=== PATIENT | female | born 1980 | race Caucasian/White ===

== ENCOUNTER 2017-07-25 19:25 | Inpatient (IN) | payer MEDICAID, SELFPAY ==
[2017-07-25] MEDS: Lactated Ringers 1,000 ML 50 ML IV ×2 (20:15→21:18)
[2017-07-25 20:18] VITALS: BMI 29.1
[2017-07-25 20:34] LABS: Hematocrit 38.1 % (37-47); Hemoglobin 12.9 g/dl (12.0-15.0); Mean Corp Hgb Conc 33.9 g/gl (32-36); Mean Corpuscular Hgb 28.9 pg (27.0-32.0); Mean Corpuscular Volume 85.4 fL (81-99); Mean Platelet Vol. 10.1 fl (6.2-12.0); Platelet Count 196 K/mm3 (150-450); RBC Distribution Width CV 13.8 % (11.6-14.6); RBC Distribution Width SD 42.7 fl (35.1-43.9); Red Blood Count 4.46 M/mm3 (4.2-5.4); White Blood Count 7.5 K/mm3 (4.4-11.0)
[2017-07-25 20:37] LABS: Scan Indicated on CBC? Y/N NO
--- NOTE | 2017-07-25 21:26 | PCM.HP.OB ---
History Date of Admission: 07/25/17 Final ASIM: 07/31/17 Final ASIM Source: US <20 weeks Gestational age: 39 Weeks and 1 Days History of this : 36-year-old at 39-1/7 weeks gestation EDC of July 31, 2017 presents complaining of contractions. Is admitted in labor. Her was complicated to date by advanced maternal age. Pertinent Past Medical History: Past medical history significant for anxiety, acne, clinical hyperthyroidism. Obstetrical history: She has had 4 previous vaginal deliveries at 36 weeks 4 days the remainder at term. Past surgical history: [place] teeth extraction and again biopsies Allergies No Known Allergies Allergy (Verified 07/25/17 20:10) Current Medications Acetaminophen (Tylenol) 325 - 650 mg PO Q4H PRN PRN PRN Reason: PAIN OR FEVER >100.4F Al Hydroxide/Mg Hydroxide (Mylanta Ii) 15 - 30 ml PO Q4H PRN PRN PRN Reason: INDIGESTION Citric Acid/Sodium Citrate (Bicitra) 30 ml PO UD PRN Lactated Ringer's () 1,000 mls @ 50 mls/hr IV .Q20H [facility] Last Admin: 07/25/17 21:18 Dose: 50 mls/hr Nalbuphine HCl (Nubain) 5 - 10 mg IV Q3H PRN PRN PRN Reason: PAIN (4-10/10) Ondansetron HCl (Zofran) 4 mg IV Q8H PRN PRN PRN Reason: NAUSEA Promethazine HCl (Phenergan (Ll)) 6.25 - 12.5 mg IV Q4H PRN PRN; Protocol PRN Reason: IF NAUSEA PERSISTS Sodium Chloride () 5 - 15 ml IV UD [facility] Last Admin: 07/25/17 20:44 Dose: Not Given Smoking Status: Never smoker Alcohol: None Drug Use: none Number of Fetus(es): 1 Review of Systems Constitutional: Denies: Chills, Fever Cardiovascular: Reports: Edema - mild. Denies: Chest Pain Respiratory: Denies: Cough Physical Exam General: Alert, Cooperative, No apparent distress Cardiovascular: Regular rate Lungs: Normal air movement Abdomen: Soft, Non Tender, Non-Distended, Gravid, Appropriate for Gestational Age Extremities:: Other - edema- trace Estimated gestational size: Appropriate for gestational size Presentation: Cephalic Assessment/Plan 36-year-old 5 para 4 female at 39-1/7 weeks gestation in active labor. 1. Admit in labor, estimated weight is less than 4500 g and pelvis is clinically adequate to expect vaginal delivery. May use epidural or nitrous oxide as needed for pain control. 2. Group B strep is negative
--- NOTE | 2017-07-25 21:31 | HP.PCM_ITS ---
History Date of Admission: 07/25/17 Final ASIM: 07/31/17 Final ASIM Source: US <20 weeks Gestational age: 39 Weeks and 1 Days History of this : 36-year-old at 39-1/7 weeks gestation EDC of July 31, 2017 presents complaining of contractions. Is admitted in labor. Her was complicated to date by advanced maternal age. Pertinent Past Medical History: Past medical history significant for anxiety, acne, clinical hyperthyroidism. Obstetrical history: She has had 4 previous vaginal deliveries at 36 weeks 4 days the remainder at term. Past surgical history: [place] teeth extraction and again biopsies Allergies No Known Allergies Allergy (Verified 07/25/17 20:10) Current Medications Acetaminophen (Tylenol) 325 - 650 mg PO Q4H PRN PRN PRN Reason: PAIN OR FEVER >100.4F Al Hydroxide/Mg Hydroxide (Mylanta Ii) 15 - 30 ml PO Q4H PRN PRN PRN Reason: INDIGESTION Citric Acid/Sodium Citrate (Bicitra) 30 ml PO UD PRN Lactated Ringer's () 1,000 mls @ 50 mls/hr IV .Q20H [facility] Last Admin: 07/25/17 21:18 Dose: 50 mls/hr Nalbuphine HCl (Nubain) 5 - 10 mg IV Q3H PRN PRN PRN Reason: PAIN (4-10/10) Ondansetron HCl (Zofran) 4 mg IV Q8H PRN PRN PRN Reason: NAUSEA Promethazine HCl (Phenergan (Ll)) 6.25 - 12.5 mg IV Q4H PRN PRN; Protocol PRN Reason: IF NAUSEA PERSISTS Sodium Chloride () 5 - 15 ml IV UD [facility] Last Admin: 07/25/17 20:44 Dose: Not Given Smoking Status: Never smoker Alcohol: None Drug Use: none Number of Fetus(es): 1 Review of Systems Constitutional: Denies: Chills, Fever Cardiovascular: Reports: Edema - mild. Denies: Chest Pain Respiratory: Denies: Cough Physical Exam General: Alert, Cooperative, No apparent distress Cardiovascular: Regular rate Lungs: Normal air movement Abdomen: Soft, Non Tender, Non-Distended, Gravid, Appropriate for Gestational Age Extremities:: Other - edema- trace Estimated gestational size: Appropriate for gestational size Presentation: Cephalic Assessment/Plan 36-year-old 5 para 4 female at 39-1/7 weeks gestation in active labor. 1. Admit in labor, estimated weight is less than 4500 g and pelvis is clinically adequate to expect vaginal delivery. May use epidural or nitrous oxide as needed for pain control. 2. Group B strep is negative
[2017-07-25] MEDS: Mag Hydrox/Al Hydrox/Simeth 30 ML UDC PO (22:34)
[2017-07-25] MEDS: Oxytocin 30 units/NS 500 ml 30 UNITS/500 ML IV.SOLN 334 UNITS IV (23:01)
--- NOTE | 2017-07-25 23:17 | PCM.OB.VAG ---
Vaginal Delivery Maternal Presentation: Active Labor Amniotic Membrane Rupture Type: Artificial Amniotic Fluid Description: Clear Final ASIM: 07/31/17 Final ASIM Source: US <20 weeks Gestational age: 39 Weeks and 1 Days Date of Procedure: 07/25/17 Pre-Operative Diagnosis: Labor Post-Operative Diagnosis: Same Surgery/ Procedure Performed: Spontaneous Vaginal Delivery Type of Anesthesia: Epidural Description of Procedure: A vigorous female was delivered ALLIE over a second-degree perineal laceration. The remainder the infant was delivered with maternal pushing and gentle traction only in less than 15 seconds. The Pitocin infusion was initiated for active management of the third stage. The cord was clamped and cut after 1 minute. The infant was attended to by the waiting nursing staff. The placenta was delivered spontaneously and intact. The cervix and vagina were intact. The second-degree perineal laceration was repaired with 3-0 Vicryl suture in a running standard fashion. Sponge and needle counts were correct. A vaginal sweep was completed by me. Presentation: MERVAT Placental Delivery Description: Spontaneous Placenta Disposition: [facility] Cord Vessel Description: 3 Vessels Cord Entanglement: None Drain: - - None Estimated Blood Loss: 300 Infant A gender: Female (1 minute): 9 (5 minute): 10 Episiotomy Description: None Laceration: 2nd degree Medications given after delivery: IV Pitocin Complications: None
[2017-07-25] MEDS: Oxytocin 30 units/NS 500 ml 30 UNITS/500 ML IV.SOLN 167 UNITS IV (23:31)
[2017-07-26] MEDS: Methylergonovine 0.2 MG/ML Ampul IM (00:08)
[2017-07-26] MEDS: 0.9% Saline Lock 10 ML Syringe IV (00:40)
--- NOTE | 2017-07-26 01:23 | NURSING ---
epidural catheter removed, blue tip intact
[2017-07-26] MEDS: Naproxen 250 MG Tablet PO ×3 (03:34→20:24)
[2017-07-26 08:05] VITALS: BP 121/80; PULSE 82; RESP 16; TEMP 36.4
--- NOTE | 2017-07-26 08:59 | PCM.PN.OB ---
Subjective: pain well controlled, average lochia - Physical Exam General: Alert, Cooperative, No apparent distress Vital Signs Temp Pulse Resp BP 97.6 F L 82 16 121/80 H 07/26/17 08:05 07/26/17 08:05 07/26/17 08:05 07/26/17 08:05 Weight: 74.7 kg Body Mass Index (BMI) 29.1 Intake and Output for Last 24 Hours 07/24/17 07/25/17 07/26/17 23:59 23:59 23:59 Intake Total 1315 / 1315 600 / 600 Output Total 500 / 500 1800 / 1800 Balance 815 / 815 -1200 / -1200 Laboratory Tests Past 24 Hrs 07/25/17 07/25/17 20:15 20:15 WBC 7.5 RBC 4.46 Hgb 12.9 Hct 38.1 MCV 85.4 MCH 28.9 MCHC 33.9 RDW 13.8 RDW Differential 42.7 Plt Count 196 MPV 10.1 Blood Type O POSITIVE Antibody Screen NEGATIVE Assessment/Plan PPD#1 Doing well infant and doing well
[2017-07-26 12:00] VITALS: BP 113/72; PULSE 89; RESP 16; TEMP 36.6
[2017-07-26 16:11] VITALS: BP 111/64; PULSE 83; RESP 16; TEMP 36.4
[2017-07-26 19:50] VITALS: BP 116/52; PULSE 92; RESP 16; TEMP 36.4; O2SAT 98
[2017-07-27] MEDS: Acetaminophen 500 MG Tablet 1000 MG PO (02:09)
[2017-07-27 02:11] VITALS: BP 124/77; PULSE 82; RESP 16; TEMP 36.2; O2SAT 98
[2017-07-27] MEDS: Naproxen 250 MG Tablet PO (05:49)
[2017-07-27 07:38] VITALS: BP 110/57; PULSE 81; RESP 16; TEMP 36.4; O2SAT 98
--- NOTE | 2017-07-27 08:24 | DCINST_ITS ---
Discharge Diet: No Restrictions Discharge Activity: Return to Normal Activity, May not drive while taking narcotic pain medications., May Shower May resume sexual activity in: 4-6 weeks Additional Activity Instructions:: Nothing in the vagina for 4-6 weeks. You may return to work/school in 6 weeks. Call your doctor if your incision/area has: Continuous Slow Oozing, Sudden Increased Bleeding, Increased Pain/ Swelling, Increased Redness, Foul Smelling Discharge Additional Instructions: If you experience any of the following, contact your healthcare provider. * Bleeding that soaks a pad every hour for 2 hours * Fever 100.4 or higher * Unrelieved incision or abdominal pain * Swelling, redness, discharge or bleeding from your incision or episiotomy site * Your incision begins to separate * Problems urinating (including inability to urinate or burning while urinating) . * Visual changes * Severe headache * Flu-like symptoms * Pain or redness in one of both of your breasts * Pain, warmth, tenderness or swelling in your legs, especially the calf area * Frequent nausea and vomiting * Symptoms of depression or anxiety If you experience any of the following, call 911 or go to the nearest Emergency Room. * Chest pain * Problems breathing * Seizure activity * Partial or complete paralysis of a body part, slurred speech, weakness or drooping of the face, or a sudden inability to walk or hold your balance Allergies/Adverse Reactions: Allergies No Known Allergies Allergy (Verified 07/25/17 20:10) Medications to take at Discharge Bacillus Coagulans [Probiotic] 1 each PO DAILY 07/25/17 Vit Calc,Iron,Folic [ Vitamins] 1 each PO DAILY 07/25/17 Please Follow Up With: Charlene Jones MD - [phone] When: Call to make an appointment with your doctor in 6 weeks. If you had elevated Blood Pressure or 4th degree laceration you will need to be seen in 2 weeks. Primary Care Physician: Juan Manuel Ariza III, MD [Primary Care Provider] -
--- NOTE | 2017-07-27 08:24 | PCM.DCVAG ---
Discharge Diet: No Restrictions Discharge Activity: Return to Normal Activity, May not drive while taking narcotic pain medications., May Shower May resume sexual activity in: 4-6 weeks Additional Activity Instructions:: Nothing in the vagina for 4-6 weeks. You may return to work/school in 6 weeks. Call your doctor if your incision/area has: Continuous Slow Oozing, Sudden Increased Bleeding, Increased Pain/ Swelling, Increased Redness, Foul Smelling Discharge Additional Instructions: If you experience any of the following, contact your healthcare provider. Bleeding that soaks a pad every hour for 2 hours Fever 100.4 or higher Unrelieved incision or abdominal pain Swelling, redness, discharge or bleeding from your incision or episiotomy site Your incision begins to separate Problems urinating (including inability to urinate or burning while urinating). Visual changes Severe headache Flu-like symptoms Pain or redness in one of both of your breasts Pain, warmth, tenderness or swelling in your legs, especially the calf area Frequent nausea and vomiting Symptoms of depression or anxiety If you experience any of the following, call 911 or go to the nearest Emergency Room. Chest pain Problems breathing Seizure activity Partial or complete paralysis of a body part, slurred speech, weakness or drooping of the face, or a sudden inability to walk or hold your balance Allergies/Adverse Reactions: Allergies No Known Allergies Allergy (Verified 07/25/17 20:10) Medications to take at Discharge Bacillus Coagulans [Probiotic] 1 each PO DAILY 07/25/17 Vit Calc,Iron,Folic [ Vitamins] 1 each PO DAILY 07/25/17 Please Follow Up With: Charlene Jones MD - [phone] When: Call to make an appointment with your doctor in 6 weeks. If you had elevated Blood Pressure or 4th degree laceration you will need to be seen in 2 weeks. Primary Care Physician: Juan Manuel Ariza III, MD [Primary Care Provider] -
--- NOTE | 2017-07-27 08:25 | PCM.PN.OB ---
Subjective: pain well controlled, average lochia - Physical Exam General: Alert, Cooperative, No apparent distress Vital Signs Temp Pulse Resp BP Pulse Ox 97.6 F L 81 16 110/57 L 98 07/27/17 07:38 07/27/17 07:38 07/27/17 07:38 07/27/17 07:38 07/27/17 07:38 Oxygen Delivery Method Room Air Weight: 74.7 kg Body Mass Index (BMI) 29.1 Intake and Output for Last 24 Hours 07/25/17 07/26/17 07/27/17 23:59 23:59 23:59 Intake Total 1315 / 1315 600 / 600 Output Total 500 / 500 1800 / 1800 Balance 815 / 815 -1200 / -1200 Assessment/Plan PPD#2 doing well ready for d/c
== END 2017-07-27 11:30 | disposition home or self-care (01) | DRG 373 ==
PROVIDERS: Admitting Provider Obstetrics & Gynecology; Family Provider Family Medicine; PCP Family Medicine; Visit Provider Obstetrics & Gynecology
DX: O70.1 Second degree perineal laceration during delivery (principal); Z3A.39 39 weeks gestation of pregnancy; Z37.0 Single live birth
CPT/HCPCS: 59025; 59050; 85027; 86850; 86900; 99218; J7120; A4216; G0378

== ENCOUNTER 2020-05-13 21:41 | Emergency (ER) | payer MEDICAID, SELFPAY ==
[2020-05-13 21:42] VITALS: BP 152/111; PULSE 140; RESP 18; TEMP 36.2; O2SAT 100; BMI 25.7
--- NOTE | 2020-05-13 21:51 | EKG12_ITS ---
Test Reason : PALPS Blood Pressure : / mmHG Vent. Rate : 126 BPM Atrial Rate : 126 BPM P-R Int : 164 ms QRS Dur : 088 ms QT Int : 310 ms P-R-T Axes : 077 005 058 degrees QTc Int : 448 [address] tachy[address] Nonspecific ST abnormality Abnormal ECG Confirmed by ZACHARY PHAN, VIRGINIE ([id number]), food expeditor EBONY OVIEDO ([id number]) on 05/18/2020 9:48:11 A M Referred By: RACHEL Confirmed By:CITLALI SHARMA MD
[2020-05-13 22:00] VITALS: BP 136/84; PULSE 135; RESP 16; O2SAT 100
--- NOTE | 2020-05-13 22:06 | ED.VISSUMM ---
- ER Visit Summary Date of Service: 05/13/20 Chief Complaint: Palpitations History of Present Illness: The patient is a 39 F past medical history of panic attacks. Says she was eating dinner tonight about 620 she just felt her arms heavy and felt she might pass out. Denies any chest pain. About 2 to 2.5 hours later she developed accelerated heart rate. States she is never had this happen before denies any shortness of breath. No recent travel, surgery or immobilization. No hospitalization. No history of DVT or PE. Her last menstrual period started about a week ago and ended 2 days ago. She has heavy menstrual periods normally but said she seen the bleed more this time. She denies any recent nausea, vomiting or diarrhea. She denies any melena. She denies any fever or chills. No cough. No recent chest pain. Notes no family history. She denies any calf pain or swelling. Physical Examination: Young female no acute distress. Vital signs are stable and afebrile. Heart rate is 140. Pulse ox 100% on room air no signs hypoxia. HEENT exam unremarkable. Neck nontender no lymphadenopathy. No JVD. Lungs clear to auscultation bilaterally. Heart tachycardic rate about 140 no murmur. Chest wall nontender. Abdomen soft nontender. Patient is moving all 4 extremities. Neurovascular intact. Equal symmetrical radial pulses. Calves are nontender without edema or cords. Neurologically she is awake alert with no focal motor deficits. Back is nontender. Test Results: EKG shows a sinus tachycardia rate of 126 with no acute signs of [place]. Chest x-ray normal. Normal cardiac silhouette. Normal mediastinum. Normal lung macario. Portable 1 view interpreted by myself. Radiologist agrees. CBC normal white count of 7. Hemoglobin 14. Chemistries unremarkable other than a low potassium of 2.9. Normal creatinine and gap. Troponin normal. D-dimer was normal also. Repeat exam patient is doing well. Pulse ox is 100% on room air. I did walk her up and down the hallway she had no shortness of breath. No trouble walking. Heart rate was around 120 but without complaints. She never became hypoxic. Emergency Department Course and Treatment: Patient with near syncope and accelerated heart rate but now is feeling better. Labs are unremarkable. Other than a low potassium of 2.9. She will be given p.o. K-Dur. Placed on potassium for the next week. Treatment Plan: Return if feeling worse. Follow-up with your primary care physician. K. Dur 40 mg daily for 1 week. Disposition: Discharge Impression: Near syncope uncertain etiology with tachycardia Hypokalemia This note was generated with [employer] dictation software. It may contain incorrect words, spelling, and punctuation that were not noted in review of the chart prior to signing ED Disposition - Plan for ED Patient: Referrals: Juan Manuel Ariza III, MD [Primary Care Provider] -
[2020-05-13 22:14] LABS: Absolute Lymphocyte Count 1.89 X10^3/uL (0.83-4.51); Absolute Neutrophil Count 4.7 X10^3/uL (2.0-7.7); Basophil# 0.03 X10^3/uL; Basophil% 0.4 % (0-1); Eosinophil# 0.06 X10^3/uL; Eosinophils% 0.8 % (0-5); Hematocrit 42.4 % (37-47); Hemoglobin 14.6 g/dL (12.0-15.0); Lymphocyte # 1.89 X10^3/ul (4.0); Mean Corp Hgb Conc 34.4 g/dL (32-36); Mean Corpuscular Hgb 29.4 pg (27.0-32.0); Mean Corpuscular Volume 85.3 fL (81-99); Mean Platelet Vol. 9.7 fl (6.2-12.0); Monocyte# 0.56 X10^3/uL; Monocyte% 7.7 % (0-10); NRBC Flagged by Analyzer 0 % (0-5); Neutrophil # 4.71 X10^3/uL (2.7-7.7); Neutrophil % 64.8 % (47-70); Platelet Count 398 K/mm3 (150-450); RBC Distribution Width CV 12.1 % (11.6-14.6); RBC Distribution Width SD 37.2 fl (35.1-43.9); Red Blood Count 4.97 M/mm3 (4.2-5.4); White Blood Count 7.3 K/mm3 (4.4-11.0)
--- NOTE | 2020-05-13 22:17 | RAD_ITS ---
STUDY: X-RAY CHEST REASON FOR EXAM: Female, 39 years old. Palpitations. TECHNIQUE: AP COMPARISON: None. FINDINGS: No apparent pneumothorax, pneumonia, pleural effusion, or edema. Cardiac silhouette, pepito and mediastinal contours are within normal limits. No acute osseous abnormality. No evidence of free air under the diaphragm. RAD/Chest 1 View (Portable) IMPRESSION: Negative chest radiograph. Electronically Signed: Lon Meyer, at 22:39 EST Tel , Service support ,
[2020-05-13 22:27] LABS: Anion Gap 8 (5-15); BUN 13 mg/dL (7-18); BUN/Creat Ratio 16.9 RATIO (10-20); Calcium,Total 9.2 mg/dL (8.5-10.1); Chloride 104 mmol/L (98-107); Creatinine, Serum 0.77 mg/dL (0.55-1.02); EST Glomerular Filtration Rate 89 mL/min (>60); Est Glom Filt Rate - Afr Amer 107 mL/min (>60); Estimated Creatinine Clearance 85.54 ml/min; Glucose 148 mg/dL (74-106); Potassium 2.9 mmol/L (3.5-5.1); Sodium Level 138 mmol/L (136-145)
[2020-05-13 22:58] LABS: D-Dimer Quantitative (DVT/PE) <= 0.27 FEU/ug/m (0.27-0.49)
--- NOTE | 2020-05-13 23:01 | ED.DEP ---
ED Disposition - Plan for ED Patient: Disposition: Home or Assisted Living Instructions: ED Hypokalemia, ED Near-Fainting, Uncertain Cause Prescriptions: Potassium Chloride [K-Dur] 20 meq PO DAILY 7 Days tab Prescription Printed Referrals: Juan Manuel Ariza III, MD [Primary Care Provider] - 3-5 Days if not improving Additional Instructions: Your lab work and x-ray were unremarkable. Your potassium is slightly low at 2.9. Use the potassium prescription over the next week. Follow-up with your doctor if not improving or return to the emergency department if feeling worse.
[2020-05-13 23:35] VITALS: BP 117/78; PULSE 117; RESP 20; O2SAT 98
== END 2020-05-13 23:36 | disposition home or self-care (01) ==
PROVIDERS: Emergency Provider Emergency Medicine; PCP Family Medicine
DX: R55 Syncope and collapse (principal); E87.6 Hypokalemia; R00.0 Tachycardia, unspecified; F41.0 Panic disorder [episodic paroxysmal anxiety]
CPT/HCPCS: 71045; 80048; 84484; 85025; 85379; 93005; 99285; A4216

== ENCOUNTER 2021-11-13 13:38 | Emergency (ER) | payer MEDICAID, SELFPAY ==
[2021-11-13 13:39] VITALS: BP 145/84; PULSE 116; RESP 16; TEMP 36.9; O2SAT 100; BMI 25.7
--- NOTE | 2021-11-13 14:15 | CT_ITS ---
STUDY: CT ABDOMEN AND PELVIS WITH CONTRAST REASON FOR EXAM: Female, 41 years old. RLQ pain RADIATION DOSAGE (If Supplied By Facility): CTDIvol = ( 9.84 ) mGy, DLP = ( 476.48 ) mGycm TECHNIQUE: Transaxial images were obtained from the dome of the diaphragm to the symphysis pubis without oral contrast. IV 100mL Isovue-370 was administered. Sagittal and coronal images were reconstructed. Individualized dose optimization techniques were used for this CT. COMPARISON: None. FINDINGS: The visualized lung bases are unremarkable. The visualized portions of the heart are within normal limits. Normal liver. Contracted thick-walled gallbladder without calcified stones possibly physiologic. If concern for gallbladder disease ultrasound recommended.. Normal spleen. Normal pancreas. Normal bilateral adrenal glands. Normal right kidney. Normal left kidney. Normal visualized stomach. Normal small intestine. Normal colon. No definitive evidence for acute appendicitis Normal abdominal aorta. Normal inferior vena cava. Normal retroperitoneum. Normal urinary bladder. There is mild prominence of the uterus within the midline and mildly compressing the dome of the bladder. There is a left ovarian cyst measuring approximately 3.57 x 2.54 cm. There are 2 other cystic structures in the right adnexa measuring 2.32 x 2.26 cm and 1.85 x 2.23 cm also likely ovarian. There is fluid within the cul-de-sac possibly due to recent ovulation. Normal abdominal wall. Normal osseous structures. CT/Abdomen/Pelvis W IV Cont ONLY IMPRESSION: Multiple bilateral adnexal cystic structures likely ovarian with fluid in the cul-de-sac possibly due to recent ovulation. Pelvic sonogram would be useful for further evaluation. No definitive evidence for acute appendicitis Electronically Signed: Eduardo Yeboah MD at 16:15 EDT ,
--- NOTE | 2021-11-13 14:16 | EDS_ITS ---
HPI HPI - GI History of Present Illness Chief Complaint: Abd Pain Narrative Narrative: 41-year-old female with past medical history of ovarian cyst with rupture presents with right lower quadrant abdominal pain that she is had since yesterday. She had pain similar with her ovarian cyst ruptures but usually takes Motrin and the pain is relieved. Last evening, her pain intensified. She is nauseated but has not vomited. She denies any dysuria or hematuria. No problems with bowel movements. No diarrhea or melena. She denies any exacerbating or alleviating factors to her right lower quadrant pain. She was concerned because this has lasted longer than her previous ovarian cyst ruptures. PFSH PFS Home Medications Bacillus coagulans 250 million cell chewable tablet (Probiotic (B. coagulans)) 1 ea PO DAILY immune support 07/25/17 [History Last Taken 07/25/17 09:00 1 tab] prenat.vits,steven,ims-[id number] ( Vitamin) 1 ea PO DAILY 07/25/17 [History Last Taken 07/25/17 09:00 1 tab] Allergy/AdvReac Type Severity Reaction Status Date / Time No Known Allergies Allergy Verified 05/13/20 21:44 Social History Smoking Status: Never smoker ROS ROS ED ROS Narrative Constitutional: No fever, no chills. HEENT: No sore throat. No neck pain. No loss of vision. No rhinorrhea. Cardiovascular: No chest pain. No palpitations. No pedal edema. Respiratory: No cough, no shortness of breath. Abdominal: Right lower quadrant abdominal pain. Positive nausea. No vomiting. Genitourinary: No dysuria. No hematuria. Musculoskeletal: No myalgias. No arthralgias. Neurologic: No headaches. No dizziness. No lightheadedness. Skin: No rash. No change in color. Psychiatric: No depression. No anxiety. EXAM Physical Exam Narrative Exam Narrative: Afebrile. Vital signs noted. HEENT: Normocephalic. Atraumatic. PERRL, EOMI. Neck soft and supple. No point tenderness or step off. Cardiovascular: Regular rate and rhythm. No murmurs, rubs, or gallops appreciated. Respiratory: No tachypnea. Lungs clear to auscultation bilaterally. Gastrointestinal: Abdomen soft, with mild tenderness to palpation right lower quadrant with normoactive bowel sounds. No rebound or guarding. No evidence of Rovsing sign. Negative heel strike. Neurological: Awake. Alert. Nonfocal, nonlateralizing. Skin: No rash. Normal color. No pallor. Musculoskeletal: No pedal edema. Full range of motion extremities. Const Vital Signs: 11/13/21 13:39 11/13/21 17:50 Temperature 98.5 F Temperature Source Temporal Pulse Rate 116 H Respiratory Rate 16 Blood Pressure 145/84 H 115/73 Blood Pressure Mean 104 Pulse Ox 100 Oxygen Delivery Method Room Air MDM MDM MDM Narrative Medical decision making narrative: Comprehensive work-up was pursued. Concern is for appendicitis. In the differential is also ovarian cyst rupture or possible ureteral lithiasis, but there has been no hematuria or colicky pain. She was bolused normal saline 1 L intravenously and administered morphine and ondansetron for analgesia and nause a. She has normal white count of 6.9, hemoglobin normal at 13.7, normal platelet count of 359. CMP shows chloride of 108 but other electrolytes grossly unremarkable. Serum is negative. Urinalysis shows no evidence of infection. CT scan shows no evidence for acute appendicitis. There are multiple cysts in the ovarian area bilaterally with fluid in the cul-de-sac which the radiologist read as recent ovulation, but I feel may be secondary to a ruptured ovarian cyst. Upon repeat examination, abdomen remains soft. I feel the patient can be discharged safely home with follow-up to her [employer]PERVIS[employer] IT SPECIALIST. She will continue [id number] medications as needed. Return instructions were reviewed. Disposition is discharged home in stable condition. Lab Data Attestation: I reviewed the patient's lab results. Labs: Laboratory Results - last 24 hr 11/13/21 11/13/21 11/13/21 14:30 14:30 14:30 WBC 6.9 RBC 4.75 Hgb 13.7 Hct 40.0 MCV 84.2 MCH 28.8 MCHC 34.3 RDW Std Deviation 37.3 RDW Coeff of Kathy 12.2 Plt Count 359 MPV 9.6 Immature Gran % (Auto) 0.100 Neut % (Auto) 83.4 H Lymph % (Auto) 12.0 L [place] % (Auto) 4.2 Eos % (Auto) 0.0 Baso % (Auto) 0.3 Absolute Neuts (auto) 5.7 Absolute Lymphs (auto) 0.82 L Nucleated RBC % 0 Sodium 139 Potassium 3.7 Chloride 108 H Carbon Dioxide 25.0 Anion Gap 6 BUN 9 Creatinine 0.62 Estim Creat Clear Calc 104.16 Est GFR (MDRD) Af Amer 138 Est GFR (MDRD) Non-Af 114 BUN/Creatinine Ratio 14.6 Glucose 95 Calcium 9.2 Total Bilirubin 1.10 H AST 19 ALT 43 Alkaline Phosphatase 77 Total Protein 7.3 Albumin 3.8 Globulin 3.5 Albumin/Globulin Ratio 1.1 Lipase 134 Serum , Qual NEGATIVE Urine Color Urine Clarity Urine pH Ur Specific [place] Urine Protein Urine Glucose (UA) Urine Ketones Urine Occult Blood Urine Nitrite Urine Bilirubin Urine Urobilinogen Ur Leukocyte Esterase Urine RBC Urine WBC Ur Squamous Epith Cells Urine Bacteria Urine Mucus 11/13/21 14:30 WBC RBC Hgb Hct MCV MCH MCHC RDW Std Deviation RDW Coeff of Kathy Plt Count MPV Immature Gran % (Auto) Neut % (Auto) Lymph % (Auto) [place] % (Auto) Eos % (Auto) Baso % (Auto) Absolute Neuts (auto) Absolute Lymphs (auto) Nucleated RBC % Sodium Potassium Chloride Carbon Dioxide Anion Gap BUN Creatinine Estim Creat Clear Calc Est GFR (MDRD) Af Amer Est GFR (MDRD) Non-Af BUN/Creatinine Ratio Glucose Calcium Total Bilirubin AST ALT Alkaline Phosphatase Total Protein Albumin Globulin Albumin/Globulin Ratio Lipase Serum , Qual Urine Color Straw Urine Clarity Clear Urine pH 7.0 Ur Specific [place] 1.005 Urine Protein Negative Urine Glucose (UA) Normal Urine Ketones Negative Urine Occult Blood Negative Urine Nitrite Negative Urine Bilirubin Negative Urine Urobilinogen Normal Ur Leukocyte Esterase Negative Urine RBC 0 SEEN Urine WBC 0 SEEN Ur Squamous Epith Cells 0 SEEN Urine Bacteria 0 SEEN Urine Mucus 0 SEEN Radiography Diagnostic Testing: Clinical Impression(s) from Imaging Studies Abdomen/Pelvis CT 11/13/21 14:15 IMPRESSION: Multiple bilateral adnexal cystic structures likely ovarian with fluid in the cul-de-sac possibly due to recent ovulation. Pelvic sonogram would be useful for further evaluation. No definitive evidence for acute appendicitis Electronically Signed: Eduardo Yeboah MD at 16:15 EDT Reading Location ID and State: [facility] / [place] , Service support , Discharge Plan Triage Chief Complaint: Abd Pain ED Provider: Reodica,Juan Ramon Dx/Rx/DC Orders Clinical Impression: Abdominal pain, RLQ, Ovarian cyst, Ovarian cyst rupture Instructions: Treating a Ruptured Ovarian Cyst, ED Abdominal Pain Unkn Cause Fem, ED Ovarian Cyst Prescriptions: No Action prenat.vits,steven,[id number] [ Vitamin] 1 EACH tablet 1 ea PO DAILY Bacillus coagulans [Probiotic (B. coagulans)] 1 EACH Tab.Chew 1 ea PO DAILY Primary Care Provider: Jimmy Michael NP Referrals: Jimmy Michael NP, STATISTICAL METHODS PROFESSOR-C [Primary Care Provider] - Activity Restrictions/Additional Instructions: Take Motrin as needed for pain. Follow-up with your [employer] IT SPECIALIST. Disposition Disposition: Home, Self Care
[2021-11-13] MEDS: 0.9% Normal Saline 1,000 ML 1000 ML IV (14:33)
[2021-11-13 14:36] LABS: Bacteria 0 SEEN /hpf (None Seen); Mucous, Urine 0 SEEN /hpf (<or=2+); Red Blood Cells-Urine 0 SEEN /hpf (0-5); Squamous Epithelial Cells - UA 0 SEEN /hpf (5-10); White Blood Cells 0 SEEN /hpf (0-5)
[2021-11-13 14:38] LABS: Color, Urine Straw (Yellow); Glucose, Dipstick Normal (Normal); Ketone-Dipstick Negative (Negative); Leukocyte Esterase-Dipstick Negative /ul (Negative); Nitrite-Dipstick Negative (Negative); Occult Blood-Urine Negative /ul (Negative); Protein-Dipstick Negative (Negative); Specific Gravity, Urine 1.005 (1.002-1.030); Urine Bilirubin Dipstick Negative (Negative); Urine Clarity Clear (Clear); Urine Urobilinogen Normal (Normal)
[2021-11-13 14:47] LABS: Absolute Lymphocyte Count 0.82 X10^3/uL (0.83-4.51); Absolute Neutrophil Count 5.7 X10^3/uL (2.0-7.7); Basophil# 0.02 X10^3/uL; Basophil% 0.3 % (0-1); Hemoglobin 13.7 g/dL (12.0-15.0); Lymphocyte # 0.82 X10^3/ul (0.83-4.51); Mean Corp Hgb Conc 34.3 g/dL (32-36); Mean Corpuscular Hgb 28.8 pg (27.0-32.0); Mean Corpuscular Volume 84.2 fL (81-99); Mean Platelet Vol. 9.6 fl (6.2-12.0); Monocyte# 0.29 X10^3/uL; Monocyte% 4.2 % (0-10); NRBC Flagged by Analyzer 0 % (0-5); Neutrophil # 5.72 X10^3/uL (2.7-7.7); Neutrophil % 83.4 % (47-70); Platelet Count 359 K/mm3 (150-450); RBC Distribution Width CV 12.2 % (11.6-14.6); RBC Distribution Width SD 37.3 fl (35.1-43.9); Red Blood Count 4.75 M/mm3 (4.2-5.4); White Blood Count 6.9 K/mm3 (4.4-11.0)
[2021-11-13 15:27] LABS: ALB/GLOB Ratio 1.1 RATIO (0.9-2.4); AST(SGOT) 19 U/L (15-37); Alanine Aminotransfer ALT/SGPT 43 U/L (13-56); Albumin, Serum 3.8 g/dL (3.2-5.0); Alkaline Phosphatase 77 U/L (45-117); Anion Gap 6 (5-15); BUN 9 mg/dL (7-18); BUN/Creat Ratio 14.6 RATIO (10-20); Calcium,Total 9.2 mg/dL (8.5-10.1); Chloride 108 mmol/L (98-107); Creatinine, Serum 0.62 mg/dL (0.55-1.02); EST Glomerular Filtration Rate 114 mL/min (>60); Est Glom Filt Rate - Afr Amer 138 mL/min (>60); Estimated Creatinine Clearance 104.16 ml/min; Globulin 3.5 g/dL (2.2-4.2); Glucose 95 mg/dL (74-106); Lipase 134 U/L (73-393); Potassium 3.7 mmol/L (3.5-5.1); Protein, Total 7.3 g/dL (6.4-8.2); Sodium Level 139 mmol/L (136-145)
[2021-11-13 15:40] LABS: Internal QC Validated? YES +Cl - CLEAR BKGD; Pregnancy, Serum, hCG Quali. NEGATIVE Negative
[2021-11-13 17:50] VITALS: BP 115/73
== END 2021-11-13 17:53 | disposition home or self-care (01) ==
PROVIDERS: Emergency Provider Emergency Medicine; PCP Nurse Practitioner Family; Visit Provider Emergency Medicine
DX: R10.31 Right lower quadrant pain (principal); N83.201 Unspecified ovarian cyst, right side; N83.202 Unspecified ovarian cyst, left side; R11.0 Nausea
CPT/HCPCS: J2405; 74177; 80053; 81001; 83690; 84703; 85025; 96360; 99283; J7030; Q9967; A4216